=== PATIENT | female | born 1955 | race African-American/Black ===

== ENCOUNTER 2018-07-03 12:34 | Emergency (ER) | payer SELFPAY ==
[~2018-07-03] VITALS: Ht 185.4 cm; Wt 99.8 kg
[2018-07-03] MEDS ORDERED: HYDROcodone-ACET 10/325MG TAB PO ONE (13:15)
[2018-07-03 16:00] VITALS: BP 138/75
== END 2018-07-03 17:15 | disposition home or self-care (01) ==
LOC: ER 12:38
DX: M17.11 Unilateral primary osteoarthritis, right knee (principal); E11.9 Type 2 diabetes mellitus without complications
CPT/HCPCS: 73502; 73562; 82962; 93005

== ENCOUNTER 2018-09-12 13:10 | Emergency (ER) | payer SELFPAY ==
[~2018-09-12] VITALS: Ht 165.1 cm; Wt 102.5 kg
[2018-09-12 13:47] VITALS: BP 151/84
[2018-09-12] MEDS ORDERED: METHOCARBAMOL 500 MG TAB PO ONE (14:30)
[2018-09-12] MEDS ORDERED: KETOROLAC TROMETH 60MG/2ML VIAL IM ONE (14:30)
== END 2018-09-12 15:44 | disposition home or self-care (01) ==
LOC: ER 13:10
DX: E11.9 Type 2 diabetes mellitus without complications (principal); G89.29 Other chronic pain; M25.562 Pain in left knee; M25.552 Pain in left hip; Z76.0 Encounter for issue of repeat prescription
CPT/HCPCS: 96372; 99283; J1885